=== PATIENT | female | born 1945 | race Caucasian/White ===

== ENCOUNTER 2019-09-02 12:10 | Outpatient (CLI) | payer MEDICARE, OTHER, SELFPAY ==
--- NOTE | ~2019-09-02 | XR_ITS ---
EXAMINATION: XR knee LT 3V DATE: 09/02/2019 13:14 INDICATION: Unspecified osteoarthritis, unspecified site. TECHNIQUE: 3 views of left knee were obtained. COMPARISON: None. FINDINGS: Bone alignment is normal. No fracture. There is mild tricompartmental osteoarthritis. No kn ee joint effusion. IMPRESSION: 1. Mild left knee osteoarthritis. Reviewed, dictated and finalized at location A.
--- NOTE | ~2019-09-02 | XR_ITS ---
EXAMINATION: XR foot RT standing 2V EXAM DATE: 09/02/2019 13:14 INDICATION: Osteoarthritis. TECHNIQUE: Frontal and lateral projections of the right foot. Images obtained standing. Correlation is made to contralateral foot same date. FINDINGS: There are no acute right foot fractures or dislocations identified. There is no subcutaneo us gas. The soft tissue is unremarkable. There are no radiopaque foreign bodies. There is mild medina llux valgus. There is mild 1st metatarsophalangeal joint primary osteoarthritis. Small calcaneal spu rs. There are no bony erosions identified. IMPRESSION: 1. Mild right hallux valgus and 1st MTP osteoarthritis. 2. Small calcaneal spurs. Reviewed, dictated and finalized at location A.
--- NOTE | ~2019-09-02 | XR_ITS ---
XR foot LT standing 2V DATE: 09/02/2019 13:14 INDICATION: Left foot pain. Osteoarthritis. TECHNIQUE: Standing AP and lateral views COMPARISON: None FINDINGS: There is mild plantar and posterior calcaneal enthesopathy, without erosive change or perio stitis. There is some narrowing at the talonavicular joint and multiple interphalangeal joints. Mild to moderate osteopenia is suggested. No fracture, dislocation, periosteal reaction or bone destr uction. IMPRESSION: Calcaneal enthesopathy and mild degenerative changes Osteopenia Mild osteoarthritis Reviewed, dictated and finalized at location B.
--- NOTE | ~2019-09-02 | XR_ITS ---
EXAMINATION: XR knee RT 3V DATE: 09/02/2019 13:14 INDICATION: Unspecified osteoarthritis, unspecified site. TECHNIQUE: 3 views of right knee were obtained. COMPARISON: None. FINDINGS: Bone alignment is normal. No fracture. There is mild tricompartment osteoarthritis. No knee joint effusion. IMPRESSION: 1. Mild right knee osteoarthritis. Reviewed, dictated and finalized at location A.
--- NOTE | ~2019-09-02 | XR_ITS ---
EXAMINATION: XR hand BI arthritis min 3V EXAM DATE: 09/02/2019 13:14 INDICATION: Osteoarthritis. TECHNIQUE: Right hand frontal, lateral and oblique projections obtained and reviewed. Left hand fron maximilian, lateral and oblique projections obtained and reviewed. Catchers projection of both hands. There is no prior study for comparison. FINDINGS: Right hand: There is polyarticular primary osteoarthritis as follows: Severe at the 1st carpometacarp al, interphalangeal, 2nd proximal and distal interphalangeal, 4th proximal interphalangeal and 5th di stal interphalangeal joints. Otherwise mild to moderate polyarticular osteoarthritis. There are no drew ny erosions identified. Left hand: There is polyarticular primary osteoarthritis as follows: Severe at the 1st CMC, interphal angeal, 3rd proximal and distal interphalangeal, 4th proximal interphalangeal joints. Otherwise mild to moderate polyarticular osteoarthritis. There are no bony erosions identified. IMPRESSION: Advanced bilateral hand osteoarthritis. Reviewed, dictated and finalized at location A.
[2019-09-02 12:38] LABS: Basophils Percent Auto 0.3 % (0.2-1.2); Eosinophils Absolute Auto 0.2 K/mm3 (0-0.3); Eosinophils Percent Auto 1.5 % (0-4.4); Hematocrit 42.8 % (37.0-47.0); Hemoglobin 13.8 g/dL (12.0-15.0); Immature Granulocyte Absolute 0.03 K/mm3 (0.00-0.031); Immature Granulocyte Percent A 0.3 % (0-0.5); Lymphocytes Absolute Auto 3.75 K/mm3 (0.9-3.2); Mean Corpuscular HGB Conc 32.2 g/dl (32-36); Mean Corpuscular Volume 89.9 fl (80-100); Mean Platelet Volume 9.9 fl (7.4-10.4); Monocytes Absolute Auto 0.8 K/mm3 (0.1-0.6); Neutrophils Absolute Auto 5.1 K/mm3 (1.3-6.7); Neutrophils Percent Auto 51.9 % (45.5-73.1); Platelet Count Result 290 k/mm3 (150-375); Red Blood Count 4.76 M/mm3 (4.2-5.4); Red Cell Distribution Width 14.6 % (11.5-14.5); White Blood Count 9.9 K/mm3 (4.5-10.0)
[2019-09-02 16:05] LABS: Add Urine Microscopic? YES; Appearance Urine Clear (Clear); Bilirubin Urine Negative (Negative); Blood Urine Negative (Negative); Color Urine Yellow (Yellow); Glucose Urine UA Negative (Negative); Ketones Urine Negative (Negative); Leukocyte Esterase Ur Negative LEU/UL (Negative); Mucus Urine Rare /lpf; Nitrate Urine Negative (Negative); Protein Urine Negative (Negative); RBC Urine 0-2 /hpf (0-2); Specific Grav Ur 1.014 (1.001-1.035); Squamous Epithelial Cell Urine Rare /hpf (Few); Urobilinogen Urine Negative mg/dL (<2.0)
[2019-09-02 16:15] LABS: Erythrocyte Sedimentation Rate 7 mm/hr (0-20)
[2019-09-02 17:38] LABS: Alanine Aminotransferase 23 U/L (4-35); Albumin Level 4.7 g/dL (3.5-5.1); Alkaline Phosphatase 113 U/L (38-126); Anion Gap 12.5 mmol/L (7-16); Aspartate Amino Transferase 38 U/L (14-36); Bilirubin,Total 0.8 mg/dL (0.2-1.3); Blood Urea Nitrogen 16 mg/dL (7-17); CRP 0.5 mg/dL (<1.0); Calcium 9.8 mg/dL (8.4-10.2); Carbon Dioxide 28 mmol/L (22-30); Chloride 101 mmol/L (98-107); Estimated Glomerular Filt Rate > 60; Glucose 87 mg/dL (65-105); Potassium 4.5 mmol/L (3.4-5.0); Sodium 137 mmol/L (137-145); Uric Acid 2.8 mg/dL (2.5-7.5)
[2019-09-02 17:41] LABS: Rheumatoid Factor < 8.6 IU/ML (<12)
[2019-09-07 21:51] LABS: Anti Cyclic Citrullinated Pept <16 Units (<20)
[2019-09-07 22:39] LABS: ANA Cascade Screen Negative (Negative)
== END 2019-09-02 12:11 | disposition home or self-care (01) ==
PROVIDERS: PCP Internal Medicine; Visit Provider Internal Medicine
DX: Z79.899 Other long term (current) drug therapy (principal); M77.31 Calcaneal spur, right foot; M20.11 Hallux valgus (acquired), right foot; M19.041 Primary osteoarthritis, right hand; M19.042 Primary osteoarthritis, left hand; M77.32 Calcaneal spur, left foot; M85.872 Other specified disorders of bone density and structure, left ankle and foot; M19.072 Primary osteoarthritis, left ankle and foot; M17.0 Bilateral primary osteoarthritis of knee
CPT/HCPCS: 36415; 73130; 73562; 73620; 80053; 81001; 84550; 85025; 85652; 86038; 86140; 86200; 86430

== ENCOUNTER 2021-12-25 09:20 | Outpatient (CLI) | payer MEDICARE, OTHER, SELFPAY ==
[2021-12-25 09:38] LABS: Hematocrit 39.8 % (37.0-47.0); Hemoglobin 13.2 g/dL (12.0-15.0); Mean Corpuscular HGB Conc 33.2 g/dl (32-36); Mean Corpuscular Hemoglobin 30.3 pg (26-34); Mean Corpuscular Volume 91.5 fl (80-100); Mean Platelet Volume 9.6 fl (7.4-10.4); Platelet Count Result 314 k/mm3 (150-375); Red Blood Count 4.35 M/mm3 (4.2-5.4); Red Cell Distribution Width 13.9 % (11.5-14.5); White Blood Count 6.6 K/mm3 (4.5-10.0)
[2021-12-25 13:04] LABS: Appearance Urine Clear (Clear); Bilirubin Urine Negative (Negative); Blood Urine Negative (Negative); Color Urine Yellow (Yellow); Glucose Urine UA Negative (Negative); Ketones Urine Negative (Negative); Leukocyte Esterase Ur Negative LEU/UL (Negative); Nitrate Urine Negative (Negative); Protein Urine Negative (Negative); Urobilinogen Urine 0.2 mg/dL (<2.0); pH Urine 6.5 (5.0-9.0)
[2021-12-25 13:15] LABS: Alanine Aminotransferase 32 U/L (6-35); Albumin Level 4.4 g/dL (3.5-5.1); Alkaline Phosphatase 97 U/L (38-126); Anion Gap 9 mmol/L (8-16); Aspartate Amino Transferase 41 U/L (14-36); Bilirubin,Total 0.7 mg/dL (0.2-1.3); Blood Urea Nitrogen 15 mg/dL (7-17); CRP < 0.5 mg/dL (<1.0); Carbon Dioxide 29 mmol/L (22-30); Chloride 98 mmol/L (98-107); Estimated Glomerular Filt Rate > 60; Glucose 81 mg/dL (65-110); Potassium 4.3 mmol/L (3.4-5.0); Sodium 136 mmol/L (137-145)
[2021-12-25 14:11] LABS: Erythrocyte Sedimentation Rate 7 mm/hr (0-20)
[2021-12-25 14:25] LABS: Add Urine Microscopic? NO
== END 2021-12-25 09:21 | disposition home or self-care (01) ==
LOC: ANHLAB 09:22
PROVIDERS: PCP Internal Medicine; Visit Provider Internal Medicine
DX: M19.90 Unspecified osteoarthritis, unspecified site (principal); M25.9 Joint disorder, unspecified
CPT/HCPCS: 36415; 80053; 81003; 85027; 85652; 86140

== ENCOUNTER 2022-03-06 09:47 | Outpatient (CLI) | payer MEDICARE, OTHER, SELFPAY ==
[2022-03-06 10:02] LABS: Hematocrit 39.8 % (37.0-47.0); Hemoglobin 12.9 g/dL (12.0-15.0); Mean Corpuscular HGB Conc 32.4 g/dl (32-36); Mean Corpuscular Hemoglobin 30.2 pg (26-34); Mean Corpuscular Volume 93.2 fl (80-100); Mean Platelet Volume 10.1 fl (7.4-10.4); Platelet Count Result 278 k/mm3 (150-375); Red Blood Count 4.27 M/mm3 (4.2-5.4); Red Cell Distribution Width 14.5 % (11.5-14.5); White Blood Count 7.7 K/mm3 (4.5-10.0)
[2022-03-06 11:31] LABS: Appearance Urine Clear (Clear); Bilirubin Urine Negative (Negative); Blood Urine Negative (Negative); Color Urine Light Yellow (Yellow); Glucose Urine UA Negative (Negative); Ketones Urine Negative (Negative); Leukocyte Esterase Ur Negative LEU/UL (Negative); Nitrate Urine Negative (Negative); Protein Urine Negative (Negative); Specific Grav Ur 1.015 (1.001-1.035); Urobilinogen Urine 0.2 mg/dL (<2.0)
[2022-03-06 11:33] LABS: Alanine Aminotransferase 32 U/L (6-35); Albumin Level 4.4 g/dL (3.5-5.1); Alkaline Phosphatase 95 U/L (38-126); Anion Gap 3 mmol/L (8-16); Aspartate Amino Transferase 39 U/L (14-36); Bilirubin,Total 0.9 mg/dL (0.2-1.3); Blood Urea Nitrogen 15 mg/dL (7-17); CRP < 0.5 mg/dL (<1.0); Calcium 8.9 mg/dL (8.4-10.2); Carbon Dioxide 30 mmol/L (22-30); Chloride 98 mmol/L (98-107); Estimated Glomerular Filt Rate > 60; Glucose 94 mg/dL (65-110); Potassium 3.7 mmol/L (3.4-5.0); Sodium 131 mmol/L (137-145)
[2022-03-06 11:57] LABS: Erythrocyte Sedimentation Rate 1 mm/hr (0-20)
[2022-03-06 12:06] LABS: Add Urine Microscopic? NO
[2022-03-08 16:03] LABS: NIL 0.01 IU/mL; Quantiferon TB Plus, 1T NEGATIVE (NEGATIVE); TB1-NIL 0.01 IU/mL; TB2-NIL 0.01 IU/mL
== END 2022-03-06 09:48 | disposition home or self-care (01) ==
PROVIDERS: PCP Internal Medicine; Visit Provider Internal Medicine
DX: M06.09 Rheumatoid arthritis without rheumatoid factor, multiple sites (principal); M19.90 Unspecified osteoarthritis, unspecified site; M79.641 Pain in right hand; M79.642 Pain in left hand
CPT/HCPCS: 36415; 80053; 81003; 85027; 85652; 86140; 86480

== ENCOUNTER 2022-12-02 09:03 | Outpatient (CLI) | payer MEDICARE, OTHER, SELFPAY ==
[2022-12-02 09:19] LABS: Hemoglobin 13.1 g/dL (12.0-15.0); Mean Corpuscular HGB Conc 32.8 g/dl (32-36); Mean Corpuscular Hemoglobin 29.6 pg (26-34); Mean Corpuscular Volume 90.5 fl (80-100); Mean Platelet Volume 9.4 fl (7.4-10.4); Platelet Count Result 248 k/mm3 (150-375); Red Blood Count 4.42 M/mm3 (4.2-5.4); Red Cell Distribution Width 13.8 % (11.5-14.5); White Blood Count 8.2 K/mm3 (4.5-10.0)
[2022-12-02 11:31] LABS: Alanine Aminotransferase 40 U/L (6-35); Albumin Level 4.4 g/dL (3.5-5.1); Alkaline Phosphatase 95 U/L (38-126); Anion Gap 6 mmol/L (8-16); Aspartate Amino Transferase 46 U/L (14-36); Bilirubin,Total 0.8 mg/dL (0.2-1.3); Blood Urea Nitrogen 16 mg/dL (7-17); Calcium 9.2 mg/dL (8.4-10.2); Carbon Dioxide 31 mmol/L (22-30); Chloride 101 mmol/L (98-107); Estimated Glomerular Filt Rate > 60; Glucose 80 mg/dL (65-110); Potassium 4.2 mmol/L (3.4-5.0); Sodium 138 mmol/L (137-145)
== END 2022-12-02 09:04 | disposition home or self-care (01) ==
PROVIDERS: Internal Medicine; PCP Internal Medicine; Visit Provider Internal Medicine Hematology & Oncology
DX: M06.9 Rheumatoid arthritis, unspecified (principal)
CPT/HCPCS: 36415; 80053; 85027

== ENCOUNTER 2023-11-11 17:02 | Emergency (ER) | payer MEDICARE, SELFPAY ==
--- NOTE | ~2023-11-11 | CT_ITS ---
EXAMINATION: CT facial & cervical spine wo DATE: 11/11/2023 18:36 INDICATION: Head injury. TECHNIQUE: Computed tomography (CT) of the maxillofacial region and cervical spine was performed with out intravenous contrast. Automated exposure control and iterative reconstruction technique were empl oyed. The dose-length product was 123.48 mGy-cm. COMPARISON: None FINDINGS: MAXILLOFACIAL CT: There is leftward deviation of the nasal septum. There are fractures of the nasal bones and nasal sep christianne. There is mild mucosal thickening in the paranasal sinuses. There is dependent fluid in the paran alba sinuses. There is material in the nasal cavity that may be blood. CERVICAL SPINE CT: There are nodules in the thyroid measuring up to 10 mm, likely not clinically significant. There is m ild scarring at the lung apices. There is 2 mm anterolisthesis of C5 on C6. There is moderately decre ased disc height at C6-C7. The following disc levels are specifically discussed: C2-C3: There is no uncovertebral joint osteoarthritis. There is severe right and moderate left facet joint osteoarthritis. There is no neural foraminal stenosis. There is no central canal stenosis. C3-C4: There is no uncovertebral joint osteoarthritis. There is severe right and mild left facet join t osteoarthritis. There is no neural foraminal stenosis. There is no central canal stenosis. C4-C5: There is no uncovertebral joint osteoarthritis. There is mild right and severe left facet join t osteoarthritis. There is no neural foraminal stenosis. There is no central canal stenosis. C5-C6: There is no uncovertebral joint osteoarthritis. There is mild right and severe left facet join t osteoarthritis. There is mild left neural foraminal stenosis. There is no central canal stenosis. C6-C7: There is moderate bilateral uncovertebral joint osteoarthritis. There is mild bilateral facet joint osteoarthritis. There is mild bilateral neural foraminal stenosis. There is mild central canal stenosis. C7-T1: There is no uncovertebral joint osteoarthritis. There is severe bilateral facet joint osteoart hritis. There is mild bilateral neural foraminal stenosis. There is no central canal stenosis. IMPRESSION: 1. Fractures of the nasal bones and nasal septum. 2. Moderate cervical spondylosis. Reviewed, dictated and finalized at location A.
--- NOTE | ~2023-11-11 | CT_ITS ---
EXAMINATION: CT brain wo con DATE: 11/11/2023 18:36 INDICATION: Head injury. TECHNIQUE: Computed tomography (CT) of the head was performed without intravenous contrast. The mA wa s adjusted according to patient size. Iterative reconstruction technique was employed. The dose-lengt h product was 605.33 mGy-cm. COMPARISON: None FINDINGS: There are scattered areas of low attenuation in the cerebral white matter, which is within normal limits for the patient's age. There is no intracranial hemorrhage, acute infarction, or abnorm al intracranial mass lesion. The ventricles are normal in size. There is mild mucosal thickening in t he paranasal sinuses. There is dependent fluid in sphenoid sinus. There is an effusion of the left ty mpanic cavity. IMPRESSION: 1. Normal aging brain. Reviewed, dictated and finalized at location A. IMPRESSION: 1. Normal aging brain.
[2023-11-11 17:10] VITALS: BP 185/91; PULSE 96; RESP 15; TEMP 36.5; O2SAT 100
--- NOTE | 2023-11-11 18:07 | ED.FALL ---
HPI - Fall General Chief Complaint: Fall Stated Complaint: fall, bleeding Time Seen by Provider: 11/11/23 17:11 History of Present Illness HPI Narrative: 78-year-old female with history of arthritis presents to the emergency department after ground level fall. Patient states she was walking in her neighbor's yard when she tripped on her landscaping and fell. States she landed on her face and their gravel landscaping. She did not lose consciousness. She is not anticoagulated. She is reporting with bilateral epistaxis and abrasions to her nasal bridge. She is reporting pain to her nose and generally throughout her face. She denies dental injury or trauma, neck pain, back pain, extremity injury. Denies other injuries acquired. Tdap unknown. Related Data Home Medications Medication Instructions Recorded Confirmed acetaminophen [Tylenol] PO 04/05/19 05/15/23 calcium carbonate [Caltrate 600] PO 04/05/19 05/15/23 cetirizine 10 mg tablet (Zyrtec) 5 mg PO DAILY PRN 04/05/19 05/15/23 gwmydgogkryd-cixe-dlubz acid PO 04/05/19 05/15/23 [Centrum Complete] Allergies Allergy/AdvReac Type Severity Reaction Status Date / Time codeine Allergy Unknown Unknown Verified 05/15/23 09:51 Review of Systems Review of Systems: All systems reviewed & are unremarkable except as noted in HPI and below PMFSH Past Medical History Medical History Allergies Arthritis Bilateral hand pain Inflammatory arthritis (~1976) Neuropathy Seronegative rheumatoid arthritis of multiple sites Surgical History Surgical History H/O: hysterectomy History of bladder surgery History of rectal surgery Family History Family History Mother Cancer Father Heart disease Cancer Social History Social History Smoking status: Never smoker Alcohol intake: current Alcohol use details: occasionaly Substance use type: does not use Do You Feel Safe in your Home?: Yes Lack of Transportation: No Lack of Food: Never True Current Housing: I Have Housing Concerned About Future Housing: No Difficulty Paying Gas/Electric Bills: No Difficulty Paying for Meds: No Currently Unemployed: No Education: Decline to Answer Difficulty w/ Childcare or Family Care: No Living arrangements: with family Exam Narrative: GENERAL: Well-appearing, well-nourished, and in no acute distress. HEAD: Normocephalic, atraumatic. EYES: PERRLA and EOMI. ENT: Bilateral active epistaxis. Abrasions to the bridge of the nose, no lacerations. Ecchymosis to the lateral aspects of the bridge of the nose with edema. No septal hematoma. No pain, ecchymosis or injury to the orbits. No proptosis or traumatic ocular injury. Blood draining down the posterior pharynx. No tongue or oral lacerations or abrasions. No dental fractures. NECK: No midline cervical spinous tenderness, step-offs or deformities. BACK: No midline thoracolumbar spinous tenderness, step-offs or deformities. CHEST: Clear to auscultation. No respiratory distress. HEART: Regular rate and rhythm. No murmur heard. Normal peripheral pulses. ABDOMEN: Soft, nontender, nondistended, normal active bowel sounds. EXTREMITIES: Normal range of motion. No edema. No tenderness to BUE or BLE. SKIN: Warm, dry, no rash. NEURO: No focal deficits. Alert and oriented x3. Course Vital Signs Vital signs: Vital Signs Temperature 97.7 F 11/11/23 17:10 Pulse Rate 96 11/11/23 17:10 Respiratory Rate 15 11/11/23 17:10 Blood Pressure 185/91 H 11/11/23 17:10 Pulse Oximetry 100 11/11/23 17:10 Oxygen Delivery Room Air 11/11/23 17:10 Temperature 97.7 F 11/11/23 17:10 Pulse Rate 74 11/11/23 21:35 Respiratory Rate 16 11/11/23 21:35 Blood Pressure 138/74 1
[2023-11-11] MEDS: TETANUS,DIPHTHERIA,AC PERTUSSIS ADULT (0.5 ML) BOOSTRIX IM (18:15)
[2023-11-11] MEDS: SODIUM CHLORIDE 0.9% IV 1,000 ML 999 ML IV CONT (19:51)
[2023-11-11 19:55] VITALS: BP 131/60; PULSE 89; RESP 14; O2SAT 99
[2023-11-11 19:58] LABS: Basophils Absolute Auto 0.1 K/mm3 (0.0-0.1); Basophils Percent Auto 0.3 % (0.2-1.2); Eosinophils Percent Auto 0.1 % (0-4.4); Hematocrit 35.5 % (37.0-47.0); Hemoglobin 11.8 g/dL (12.0-15.0); Immature Granulocyte Absolute 0.14 K/mm3 (0.00-0.031); Immature Granulocyte Percent A 0.7 % (0-0.5); Lymphocytes Absolute Auto 3.23 K/mm3 (0.9-3.2); Lymphocytes Percent Auto 15.6 % (18.3-44.2); Mean Corpuscular HGB Conc 33.2 g/dl (32-36); Mean Corpuscular Hemoglobin 30.3 pg (26-34); Mean Platelet Volume 9.5 fl (7.4-10.4); Monocytes Absolute Auto 0.9 K/mm3 (0.1-0.6); Monocytes Percent Auto 4.3 % (2.6-8.5); Neutrophils Absolute Auto 16.3 K/mm3 (1.3-6.7); Platelet Count Result 303 k/mm3 (150-375); Red Cell Distribution Width 13.6 % (11.5-14.5); White Blood Count 20.7 K/mm3 (4.5-10.0)
[2023-11-11 20:08] LABS: INR 1.1; Prothrombin Time 14.1 Seconds (11.1-14.7)
[2023-11-11 20:09] LABS: Partial Thromboplastin Time 26.1 Seconds (22.3-36.8)
[2023-11-11 20:12] LABS: Anion Gap 7 mmol/L (4-12); Blood Urea Nitrogen 34 mg/dL (7-17); Carbon Dioxide 27 mmol/L (22-30); Chloride 97 mmol/L (98-107); Estimated CRCL calculation 45 ml/min; Estimated Glomerular Filt Rate > 60; Glucose 147 mg/dL (65-110); Potassium 4.1 mmol/L (3.4-5.0); Sodium 131 mmol/L (137-145)
[2023-11-11 21:35] VITALS: BP 138/74; PULSE 74; RESP 16; O2SAT 98
[2023-11-11] MEDS: CEPHALEXIN 500 MG CAPSULE PO (21:48)
== END 2023-11-11 21:52 | disposition home or self-care (01) ==
PROVIDERS: Emergency Provider Physician Assistant; PCP Internal Medicine
DX: S02.2XXA Fracture of nasal bones, initial encounter for closed fracture (principal); R04.0 Epistaxis; Z23 Encounter for immunization; M19.90 Unspecified osteoarthritis, unspecified site; M05.79 Rheumatoid arthritis with rheumatoid factor of multiple sites without organ or systems involvement; Z90.710 Acquired absence of both cervix and uterus; Z79.899 Other long term (current) drug therapy; W18.09XA Striking against other object with subsequent fall, initial encounter
CPT/HCPCS: 36415; 70450; 70486; 72125; 80048; 85025; 85610; 85730; 90471; 90715; 96360; 99284; A9270; J7030